=== PATIENT | male | born 1980 | race Caucasian/White ===

== ENCOUNTER 2017-03-17 13:22 | Emergency (ER) | payer MEDICAID ==
[~2017-03-17] VITALS: Ht 180.3 cm; Wt 106.6 kg
[~2017-03-17 13:22] MED LIST: IBUPROFEN200 MG OR; KEFLEX 500MG.500 MG PO; LORTAB 5/500 501 TAB PO; MEDROL 4MG. DOSE4 MG PO; MOBIC7.5 MG PO; OXYCODONE SR 2020 MG PO; PHENERGAN 25MG.25 M1 PO; VICODIN 5/500 T1 TAB PO
--- OUTSIDE RECORDS SUMMARY | 2017-03-17 13:33 | External Medical Summary Rpt | CCD ---
Author Author FABIO Address Unknown Phone [email or web address] Purpose Continuity of Care Document - through 2016
--- OUTSIDE RECORDS SUMMARY | 2017-03-17 13:33 | External Medical Summary Rpt | CCD ---
Author Author FABIO Address Unknown Phone [email or web address] Purpose Continuity of Care Document - through 2016
--- OUTSIDE RECORDS SUMMARY | 2017-03-17 13:34 | External Medical Summary Rpt | CCD ---
Demographics Preferred Language Uzbek Marital Status Unknown Restoration Affiliation Unknown Race Unknown Ethnic Group Unknown Author Author FABIO Address Unknown Phone [email or web address] Purpose Continuity of Care Document - through 2016
--- OUTSIDE RECORDS SUMMARY | 2017-03-17 13:34 | External Medical Summary Rpt | CCD ---
Demographics Preferred Language Greek Marital Status Unknown Muslim Affiliation Unknown Race Unknown Ethnic Group Unknown Author Author FABIO Address Unknown Phone [email or web address] Purpose Continuity of Care Document - through 2016
--- OUTSIDE RECORDS SUMMARY | 2017-03-17 13:35 | External Medical Summary Rpt | CCD ---
Author Author , FABIO MCCARTHY Address Unknown Phone [email or web address] Immunization Name Date Rout CVX Reac Dose Comm Prov Is Faci e tion ent ider Refu lity Give sed n Tdap 12-2 115 999 Hist H191 No H191 , 6-20 oric Adso 07 al rbed Info rmat ion - Sour ce Unsp ecif ied Hep 08-2 8 999 Hist H191 No H191 B, 4-20 oric ped/ 00 al adol Info rmat ion - Sour ce Unsp ecif ied Hep 11-0 42 999 Hist H191 No H191 B, 6-19 oric adol 98 al Info High rmat Ris ion - Sour ce Unsp ecif ied Td 10-0 9 999 Hist H191 No H191 (luan 6-19 oric lt), 98 al Info adso rmat rbed ion - Sour ce Unsp ecif ied Hep 10-0 42 999 Hist H191 No H191 B, 6-19 oric adol 98 al Info High rmat Ris ion - Sour ce Unsp ecif ied Samy 10-0 2 999 Hist H191 No H191 o-OP 6- oric V 98 al Info rmat ion - Sour ce Unsp ecif ied
--- OUTSIDE RECORDS SUMMARY | 2017-03-17 13:35 | External Medical Summary Rpt ---
Author Author FABIO Elise, [employer] Organization [employer] Address Unknown Phone Unavailable
--- OUTSIDE RECORDS SUMMARY | 2017-03-17 13:35 | External Medical Summary Rpt | CCD ---
Author Author , FABIO MCCARTHY Address Unknown Phone [email or web address] Immunization Name Date Rout CVX Reac Dose [...]
[2017-03-17] MEDS ORDERED: FLONASE 50 MCG16 GM (13:56)
[2017-03-17] MEDS ORDERED: AMOXICILLIN 50500 MG PO (13:56)
--- NOTE | 2017-03-17 13:57 | Urgent Treatment Center Report ---
History of Present Issue Date/Time Seen by Provider 03/17/17 1346 Visit Reason Pt arrived:Walked Presenting Problem:C/O EAR PAIN IN BOTH EARS X3 DAYS Location if Accident: Onset of symptoms date/time:/ or onset unknown for:MEDICAL HX UNKNOWN Have you (or family members/close friends) recently traveled outside the [place]? N If Yes, where/when: Have you had exposure to infectious disease within the past month? TB? Other? Specify: Patient state that he has been having pain in both of his ears for around 3 days now State that pain has continued to get worse and he has been using cotton balls in his ears to help with the pain State that this morning he put some sweet oil in there and it helped a little with the pain. ALLERGIES Coded Allergies: No Known Allergies (03/17/17) History Medical History General CAD? No Angina: No GA: No Hypertension? No Hyperlipidemia? No CHF? No DVT? No PE? No COPD? No Asthma? No Anemia? No GERD? No Gastric ulcers? No GI Bleed? No Hernia? No Thyroid Problems? No Hypothyroidism? No CVA? No Seizures? No Diabetes? No Renal Insuffiency? No UTI? No Stones? No BPH? No GB Disease: No Nephritic Syndrome? No Asplenia? No Hepatitis? No Sickle Cell Disease? No Arthritis? No Migraines? No Cataracts? No Glaucoma? No MRSA? No HIV? No TB? No Anxiety? No Depression? No Cancer? No More? No Immunization HX DT/Tetanus 1-4 YRS Surgical Hx Previous Surgery?Y BOWEL RESECTION APPENDECTOMY, RUPTURED Social History Smoking Hx Smoker: Current Every Day Smoker Tobacco: Yes Type Cigarettes Packs/day < 1 Pack Alcohol Alcohol: No Review of Systems All Other Systems Reviewed and Negative ENT ear pain. Physical Exam Vital Signs Vital Signs Date Time Temp Pulse Resp B/P Pulse O2 O2 Flow FiO2 Ox Delivery Rate 03/17 1336 98.0 65 20 142/84 99 General Appearance normal appearance, WD/WN, no apparent distress Ear, Nose, Throat Bilateral ears red, TM buldging Respiratory Status Yes: trachea midline, chest symmetrical, non tender chest. No: respiratory distress. Cardiovascular normal exam, regular rate/rhythm Neurologic alert, normal exam, oriented x 3 Medical Decision Making LABS/Meds/Orders Pt receiving controlled substance in ED? No Departure Departure Time of Disposition 1353 Disposition DC Home or Self Care(routine) Clinical Impression Primary Impression: Bilateral otitis media Qualifiers: Otitis media type: unspecified Qualified Code: H66.93 - Otitis media, unspecified, bilateral Condition STABLE Referrals MICHAEL HERRERA (Family) Patient Instructions DI for Otitis Media (Middle Ear Infection)-Child Additional Instructions * Monitor Temp. Tylenol and/or Ibuprofen as needed. ER if fever is no less than 101 despite alternating Tylenol and Ibuprofen * Encourage fluids, water, Gatorade, powerade, pedialyte if infant/toddler/or child * Warm salt water gargles for throat irritation *Warm fluids *Sore throat lozenges *Sleep elevated *humidifier or vaporizer Lots of rest Increase fluids, water, Gatorade, powerade *Flonase 2 sprays each nostril daily but may take 2-3 days to notice improvement with it Follow up IMMEDIATELY for new or worsening of symptoms OR no noticeable improvement over the next 48-72 hours. 911 immediately for any life threatening symptoms such as chest pain or difficulty breathing Discharge Counseling Counseled pt/family regarding diagnosis, medications/RX, home care, follow up needs Prescriptions Current Visit Scripts Amoxicillin Trihydrate (Amoxicillin 500MG) 500 MG PO TID #30 CAP Fluticasone Propionate (Flonase 50 Mcg Nasal [place]) 2 SPRAY NA DAILY #1 BOT at 1358
[2017-03-17 13:58] VITALS: BP 142/84
== END 2017-03-17 13:59 | disposition home or self-care (01) ==
LOC: UTC 13:22
DX: H66.93 Otitis media, unspecified, bilateral (principal); F17.210 Nicotine dependence, cigarettes, uncomplicated